=== PATIENT | female | born 1995 | race Caucasian/White ===

== ENCOUNTER → 2016-05-03 20:18 | Observation (INO) ==
[2016-05-03 19:41] LABS: Bilirubin,Urine Negative (Negative); Blood,Urine Negative (Negative); Clarity,Urine Cloudy (Clear); Color,Urine Yellow (Yellow); Glucose,Urine (UA) Normal (Normal); Ketones,Urine Negative (Negative); Leukocyte Esterase,Urine Negative (Negative); Nitrite,Urine Negative (Negative); PH,Urine 6.5 pH Units (5.0-8.0); Protein,Urine Negative (Neg-Trace); Specific Gravity,Urine 1.014 (1.010-1.025); Urobilinogen,Urine Normal (Normal)
[2016-05-03 19:43] LABS: Bacteria,Urine None Seen per hpf (None-Few); Hyaline Casts,Urine None Seen per lpf (None-Few); RBC,Urine 0-3 per hpf (0-3); Squamous Epithelial Cell,Urine Many per lpf (None-Few); WBC,Urine 0-3 per hpf (0-3)
--- NOTE | 2016-05-03 19:45 | OB/GYN History & Physical ---
Date of Encounter: 05/03/16 Time of Encounter: 19:35 Assessment and Plan (1) Vaginal bleeding Current visit: Yes Status: Acute Sterile speculum exam revealed no blood in vaginal vault. Patient used the restroom while here with no vaginal discharge. Will obtain records from Dr. Ramirez. NST is reactive. No contractions on TOCO. Patient offered ultrasound for evaluation of placenta; she preferred instead to go home with follow-up to Dr. Ramirez. Next appointment with Dr. Ramirez is (2 days). Patient is requesting to leave. We do not yet have her records. Discussed this with the patient including risks of leaving; she prefers to leave. I discussed with the patient the risks of being followed with Dr. Ramirez with her plan to deliver at [facility]. Encouraged her to discuss her plan with Dr. Ramirez and to obtain as much information as possible so that she has more history should she return to [place]. History of Present Illness Chief complaint: vaginal bleeding HPI: Ms. Carson is a 20 year old female presents from home by personal vehicle with chief complaint of vaginal bleeding. Gestation 34w and 2-3d. ([id number]). Vaginal bleeding onset 1 hour ago (18:20-18:30) at home while straining during a bowel movement. Patient describes a painless wetness, found bright red blood on her hand with a quarter size and several smaller size clots. Described as, "greater than a teaspoon, definitely came from the front." No history of constipation or hemorrhoids. No intercourse or vaginal objects in the last 48 hours. After the discharge, she notes abdominal cramping and back pain. No contractions. Patient states her has been uncomplicated. Patient is still feeling movements. Patient notes her cervix is very posterior. Patient is not followed by [facility]. She was dismissed previously for multiple missed appointments. Patient initially received care from an unknown physician in [facility]. That physician told her, "there is something wrong with the placenta. Expect more complications as you progress. We may have to do a c- section to take the baby early." Patient is currently followed by Dr. Ramirez of [facility]. She has been seeing him for the past 2 months. She was told by Dr. Ramirez to, "ignore what the previous said, everything is fine." Patient does not know what plan she and Dr. Ramirez have for her . Unknown if expectant, induction, or . Patient is a poor historian. Past Med Surg Social Fam HX - Past Medical History Medical history: migraine Psychiatric history: anxiety - Past Surgical History Surgical History: cholecystectomy, other (multiple teeth removed) - Social History Smoking Status: Current every day smoker Smokeless Tobacco Status: No Alcohol use: none Drug use: none - Family History Mother Living Status: Still Living Obstetrical History - Pregnancies : 4 Para: 3 Term: 2 : 1 Ab's: 0 Livin Medications and Allergies Buprenorphine HCl [Subutex] 8 mg SL DAILY 05/03/16 [History] [id number]/Iron Fumarate/FA/Dss [ 19 Tablet] 1 tab PO DAILY 05/03/16 [ History] Allergies No Known Allergies Allergy (Verified 05/03/16 19:54) Review of System OB - Constitutional Constitutional ROS IM: no fever(s), no headache(s), no weakness - Nose, mouth, and throat Nose, mouth and throat: no dizziness - Cardiovascular Cardiovascular: no dyspnea, no edema - Respiratory Respiratory: no cough, no pain with cough - Gastrointestinal Gastrointestinal: no abdominal pain, no change in bowel habits, no constipation , no diarrhea, no heartburn, no hematochezia, no melena, no nausea, no vomiting - Genitourinary Genitourinary: abnormal vaginal bleeding, no change in urinary stream, no difficulty urinating, no difficulty voiding, no flank pain, no genital pruritis , no pelvic pain, no urinary frequency, no urinary hesitancy, no urinary urgency , no vaginal odor - Muscloskeletal Musculoskeletal: back pain Exam - Constitutional Constitutional: well developed, well nourished, no acute distress, average body habitus - HEENT HEENT: Normocephaly, Mucus Membranes Moist - Neck Neck exam: normal inspection - Lungs Respiratory exam: CTAB - Cardiovascular Cardiovascular exam: RRR, +S1, +S2 - Abdomen Abdomen: Present: bowel sounds normal, gravid, non tender. Absent: guarding noted - Extremities Extremities exam: normal inspection, warm, radial pulses palpable and symetrical - Vagina Vagina: Present: normal moisture. Absent: discharge - Uterus Uterus exam: Present: enlarged (gravid). Absent: normal contour, tender - Anus/Rectum Anus/Rectum: Present: normal perianal skin. Absent: hemorrhoids - Comments Comments: Speculum exam: normal external genitalia. No evidence of blood in vaginal vault. Unable to visualize cervix due to reported posterior position as well as collapse of vaginal baker through speculum jaws. Results All other labs normal. - VTE Reasons for not Prescribing Prophylaxis: Treatment not Indicated - Low risk for VTE
== END | disposition home or self-care (01) ==
LOC: 1NENULAB
PROVIDERS: ADMIT Obstetrics & Gynecology; ATTEND Obstetrics & Gynecology